=== PATIENT | male | born 1965 | race Caucasian/White ===

== ENCOUNTER → 2018-01-05 14:51 | Outpatient (CLI) | payer OTHER | END | disposition home or self-care (01) | LOC: D.CT 14:51 | DX: T65.91XA Toxic effect of unspecified substance, accidental (unintentional), initial encounter (principal); X58.XXXA Exposure to other specified factors, initial encounter ==

== ENCOUNTER → 2019-05-18 07:54 | Outpatient (CLI) | payer OTHER | END | disposition home or self-care (01) | LOC: D.RT 07:54 | PROVIDERS: ATTEND Clinical Nurse Specialist Family Health | DX: S27.302 Unspecified injury of lung, bilateral (principal) ==

== ENCOUNTER → 2019-10-03 18:34 | Outpatient (CLI) | payer OTHER | END | disposition home or self-care (01) | LOC: D.LAB 18:34 | PROVIDERS: ATTEND Internal Medicine Pulmonary Disease | DX: J45.909 Unspecified asthma, uncomplicated (principal); R60.0 Localized edema ==

== ENCOUNTER → 2019-10-11 12:14 | Outpatient (CLI) | payer OTHER | END | disposition home or self-care (01) | LOC: D.LAB 12:14 | PROVIDERS: ATTEND Internal Medicine Pulmonary Disease | DX: Z11.59 Encounter for screening for other viral diseases (principal) ==

== ENCOUNTER → 2019-10-13 09:59 | Outpatient (CLI) | payer OTHER ==
[2019-10-03 18:56] LABS: BASOPHILS 0.3 % (0-2); EOSINOPHILS 1.5 % (0-7); HEMATOCRIT 46.3 % (42.0-54.0); HEMOGLOBIN 15.2 g/dL (13.5-17.5); IMMATURE GRANULOCYTES 0.3 % (0-5); LYMPHOCYTES 23.9 % (15-50); MCH 29.7 pg (26.0-34.0); MCHC 32.8 g/dL (31.0-37.0); MCV 90.6 fL (80.0-100.0); MEAN PLATELET VOLUME 9.6 fL (7.4-10.4); MONOCYTES 9.7 % (2-11); NEUTROPHILS 64.3 % (40-80); PLATELET COUNT 278 10x3/uL (130-400); RBC 5.11 10x6/uL (4.20-6.10); WBC 7.5 10x3/uL (4.8-10.8)
[2019-10-03 19:09] LABS: INR 0.97 (0.85-1.17); PROTIME 12.8 SECONDS (11.6-15.0)
[2019-10-03 19:10] LABS: APTT 39.3 SECONDS (22.8-39.4)
== END | disposition home or self-care (01) ==
LOC: D.RT 10-04 10:00
PROVIDERS: ATTEND Internal Medicine Pulmonary Disease
DX: J45.909 Unspecified asthma, uncomplicated (principal); R60.0 Localized edema